=== PATIENT | male | born 1990 | race Caucasian/White ===

== ENCOUNTER → 2019-08-12 | Outpatient (CLI) | payer OTHER ==
[~2019-08-12] MED LIST: Amoxicillin500 MG PO; BACL10 PO; IBUP800 PO; TRAM50 PO
== END | disposition home or self-care (01) ==
LOC: LAB 17:34 → LAB SHORT 17:34
DX: J02.9 Acute pharyngitis, unspecified (principal)
CPT/HCPCS: 87081

== ENCOUNTER 2019-09-16 12:31 | Emergency (ER) | payer SELFPAY ==
[~2019-09-16] VITALS: Ht 190.5 cm; Wt 90.7 kg
== END 2019-09-16 13:35 | disposition home or self-care (01) ==
LOC: ER 12:31
DX: S01.512D Laceration without foreign body of oral cavity, subsequent encounter (principal); S01.412D Laceration without foreign body of left cheek and temporomandibular area, subsequent encounter; F17.210 Nicotine dependence, cigarettes, uncomplicated

== ENCOUNTER → 2021-04-14 | Outpatient (CLI) | payer OTHER | END | disposition home or self-care (01) | LOC: LAB SHORT 17:15 | DX: B95.8 Unspecified staphylococcus as the cause of diseases classified elsewhere (principal) | CPT/HCPCS: 87070; 87075; 87077; 87147; 87186; 87205 ==

== ENCOUNTER 2022-06-28 19:43 | Emergency (ER) | payer OTHER ==
[~2022-06-28] VITALS: Ht 188 cm; Wt 86.2 kg
[2022-06-28] MEDS ORDERED: IBUP800 PO (20:49)
== END 2022-06-28 21:00 | disposition home or self-care (01) ==
LOC: ER 19:43
DX: T14.8XXA Other injury of unspecified body region, initial encounter (principal); M79.652 Pain in left thigh; M25.562 Pain in left knee; W22.8XXA Striking against or struck by other objects, initial encounter; Z79.899 Other long term (current) drug therapy; F17.210 Nicotine dependence, cigarettes, uncomplicated
CPT/HCPCS: 73552; 96372; 99283-25; J1885